=== PATIENT | male | born 2000 | race Asian ===

== ENCOUNTER 2024-04-29 23:37 | Inpatient (IN) ==
[2024-04-30 00:15] LABS: Hematocrit (blood only) 50.4 % (42.0-52.0); Hemoglobin 16.4 g/dl (14.0-18.0); Mean Corpuscular Hemoglobin 27.2 pg (25.0-34.0); Mean Corpuscular Hgb Conc 32.5 g/dL (32.0-36.0); Mean Corpuscular Volume 83.7 fL (80.0-100.0); Mean Platelet Volume 9.7 fL (9.4-12.4); Platelet Count 288 K/uL (130-400); RDW Coefficient of Variation 13.9 % (11.5-14.5); RDW Standard Deviation 41.8 fL (36.4-46.3); Red Blood Count 6.02 M/uL (4.70-6.10); White Blood Count 10.95 K/ul (4.8-10.8)
[2024-04-30 00:33] LABS: Albumin Globulin Ratio 1.4 (0.9-2); BUN Creatinine Ratio 9.8 (10-20); Bilirubin,Total 0.4 mg/dl (0.2-1.0); Calcium 8.4 mg/dl (8.6-10.3); Creatinine Clr Calc Pharmacy 180.5 ml/min; Est GFR (African American) 145.5 ml/min; Est GFR (Non-African American) 125.5 ml/min; Globulin 2.8 gm/dl (2.5-4.0); Total Protein 6.8 gm/dl (6.0-8.3)
--- NOTE | 2024-04-30 00:33 | Emergency Department Note ---
Impression & Plan Chest pain, Elevated troponin, Splenomegaly, SOB (shortness of breath), Cough, Acute sore throat, Elevated LFTs ED Provider Note CHIEF COMPLAINT: Headache, itchy throat, cough HISTORY OF PRESENTING ILLNESS: This 23-year-old male patient presents to the emergency department for evaluation of a cough, sore throat, and headache for the past month. He is now having trouble taking deep breaths without pain in his chest. He is having trouble talking sometimes because of the shortness of breath. Increased shortness of breath with exertion. He is able to swallow, but with a lot of pain in his esophagus and throat. He rates his discomfort as 5/10. Had a fever initially with the illness, but no fevers in the past 2 weeks. The patient took a 7 day course of amoxicillin that he finished 2 days ago. He then started Levofloxacin and Cefotaxime from [place] 2 days ago. He has also been taking Tylenol and throat lozenges. He denies any abdominal pain, nausea, or vomiting. No known ill contacts. REVIEW OF SYSTEMS: See HPI for pertinent positives and pertinent negatives. ALLERGIES: NKDA MEDICATIONS: None PAST MEDICAL HISTORY: Denies pertinent past medical or pertinent past surgical history PHYSICAL EXAM: Vital Signs: Vitals are noted on the nurse's note and reviewed by myself. GENERAL: The patient appears ill, but is non toxic in appearance and in no acute distress. SKIN: No obvious abnormal skin lesions or rashes. Capillary reflex less than 2 seconds. HEAD: Normocephalic, atraumatic. EARS: Bilateral external auditory canals clear without tragus tenderness. Bilateral tympanic membranes pearly viera without erythema or effusion. No mastoid tenderness bilaterally. EYES: Pupils equal round and reactive to light and accommodation. Conjunctivae without injection, sclerae without icterus. Extraocular movements intact. NOSE: Patent, turbinates inflamed with no discharge. No sinus tenderness. MOUTH: Mucous membranes moist. Airway patent, uvula midline. Pharynx is erythematous and edematous without exudate. Pharynx without postnasal drip. No evidence for peritonsillar abscess. NECK: Supple without nuchal rigidity. Bilateral anterior and posterior cervical lymphadenopathy. No [place] angina. No trismus or tripoding. No hot potato voice. HEART: Regular rate and rhythm without murmurs gallops or rubs. LUNGS: Clear to auscultation bilaterally without wheezes, rales or rhonchi. No accessory muscle use or retractions. The patient does have a reflexive cough on exam. ABDOMEN: Positive bowel sounds x 4. Normal tympanic percussion. Soft, nontender to palpation. No obvious masses or organomegaly. Negative Barnett sign. No CVA tenderness. No focal right lower quadrant or left lower quadrant tenderness. NEURO: Patient was alert and oriented. Normal mental status exam. No focal neurological deficits. DIFFERENTIAL DIAGNOSIS: Differential diagnosis includes Influenza, RSV, COVID, viral syndrome, otitis media, otitis externa, pharyngitis, strep throat, pneumonia, meningitis, urinary tract infection, cellulitis, abscess, sepsis, bacteremia, myocarditis, pericarditis, MN, PE, hepatitis, mononucleosis, tickborne illness, Lyme disease, as well as other pathologies. ED COURSE AND MEDICAL DECISION MAKING: MEDICATIONS GIVEN: 1 L normal saline solution bolus. Toradol 10 mg IV. Zofran 4 mg IV. DuoNeb treatment. MONITOR: Continuous cafeteria monitor: Order was placed for continuous cafeteria monitor. Patient was placed on the cafeteria monitor and continuous pulse ox. Patient was noted to be in normal sinus rhythm at an initial rate of 88 bpm per my interpretation. EKG: EKG was interpreted by myself as normal sinus rhythm at [address] bpm with [address] acute [address] or T wave changes. INTERPRETATION OF LABS: I interpreted the labs with full lab results as below in the lab section of this note. Pertinent lab results discussed in the MDM section below. INTERPRETATION OF IMAGING: Imaging studies were interpreted by myself and read by radiology as per the imaging section of this note. CTA of the chest with IV contrast was negative for PE, pneumonia, or abnormalities of the heart. CT scan of the abdomen pelvis with IV contrast showed an enlarged liver with diffuse decreased attenuation which may be due to fatty infiltration as well as splenomegaly. CONSULTATIONS: On-call hospitalist MDM SUMMARY: The patient was seen during a time of extreme volume and extreme acuity. Nursing triage protocols were initiated with IV lock, labs, and/or imaging studies conducted by protocol in the triage area. The patient was initially evaluated in a sub-waiting room and then re-evaluated once they were taken back to an exam room. The patient has had a cough, sore throat, and headache for the past month. He now has chest pain and shortness of breath that is worse with exertion. The patient took a 7-day course of amoxicillin without improvement of his symptoms. He then started Levofloxacin and Cefotaxime 2 days ago. These medications are from his home in [place]. The patient was given 1 L normal saline solution bolus, Toradol 10 mg IV, Zofran 4 mg IV, and a DuoNeb treatment with only mild improvement of his symptoms. White blood cell count slightly elevated at 10.95. Hemoglobin normal at 16.4. Platelet count normal at 288. PT 12.1, but coags otherwise normal. AST 105 and ALT 188, but CMP otherwise normal. High-sensitivity troponin elevated at 28.4 with repeat level of 26.3. Urinalysis with 1+ ketones, but otherwise negative. Anaplasma and Babesia smear negative with DNA PCR still pending. Lyme disease screen negative. Respiratory bio fire negative. Monoscreen negative. EBV and CMV titers still pending. Acute hepatitis panel still pending. Group A strep PCR negative. CTA of the chest with IV contrast was negative for PE, pneumonia, or abnormalities of the heart. CT scan of the abdomen pelvis with IV contrast showed an enlarged liver with diffuse decreased attenuation which may be due to fatty infiltration as well as splenomegaly. The patient continues to have significant symptoms despite treatment with multiple antibiotics given to him in [place] bring [place] the [place]. The patient's LFTs are elevated and he has an enlarged liver and splenomegaly on CT scan with possible fatty liver. Monospot is negative, but EBV and CMV titers are still pending. The patient's high-sensitivity troponin x 2 were also elevated, but downtrending. EKG negative for ischemic changes. There is concern for possible myocarditis or other etiology causing the elevated troponin. Therefore, the patient will require admission for echo and further cardiac evaluation. I spoke with the on-call hospitalist who agreed to admit the patient for further inpatient evaluation and treatment. Please refer to their dictation for further details. The patient's care was transferred in stable condition. DIAGNOSIS: Chest pain Shortness of breath Cough Sore throat Elevated troponin Elevated LFTs with enlarged liver Splenomegaly Past Med/Surg History Problem List (Updated 04/30/24 @ 07:32 by Delma Nagy PA-C) Elevated LFTs (Acute) Acute sore throat (Acute) Cough (Acute) SOB (shortness of breath) (Acute) Splenomegaly (Acute) Elevated troponin (Acute) Chest pain (Acute) Splenomegaly Elevated liver enzymes Viral infection Elevated troponin Medical History No pertinent past medical history Social History Smoking Status: Never smoker Hx Alcohol Use: No Hx Substance Use: No Preferred Language: Swedish [facility] Associate Required: No Beliefs That Will Affect Care: None Current Living Situation: Alone Current Living Situation Comment: Student at [employer] lives in dorm with roommate Other Information That Helps Us Care for You: No Feels Safe at Home: Yes Safety Concerns: Feels Safe At This Time Assistive Devices: None Allergies Allergies Allergy/AdvReac Type Severity Reaction Status Date / Time No Known Allergies Allergy Verified 04/30/24 00:45 Results & Data (ED) Vital Signs Vital Signs - 24 hr 04/29/24 23:40 04/30/24 00:56 04/30/24 00:58 Temperature 36.7 C Temperature Source Temporal Artery Scan Pulse Rate 110 H 93 H Pulse Rate [Apical] Pulse Rate from SpO2 Sensor Pulse Rhythm [Apical] Pulse Strength [Apical] Respiratory Rate 16 Respiratory Effort / Characteristics Non-Labored Spontaneous Respiratory Depth Normal Respiratory Pattern Blood Pressure 129/76 130/71 Blood Pressure [Right Arm] Blood Pressure Mean 93 110 Blood Pressure Mean [Right Arm] Pulse Oximetry 96 Oxygen Delivery Method Room Air Sepsis Recent Fever Within 48 Hours No Sepsis New/Unexplained Change in Mental Status No Sepsis Action Taken by Nursing No Action Required 04/30/24 01:00 04/30/24 01:00 04/30/24 01:00 Temperature Temperature Source Pulse Rate 98 H Pulse Rate [Apical] Pulse Rate from SpO2 Sensor 94 H Pulse Rhythm [Apical] Pulse Strength [Apical] Respiratory Rate 18 Respiratory Effort / Characteristics Respiratory Depth Respiratory Pattern Blood Pressure 122/79 122/79 Blood Pressure [Right Arm] Blood Pressure Mean 94 94 Blood Pressure Mean [Right Arm] Pulse Oximetry 96 Oxygen Delivery Method Sepsis Recent Fever Within 48 Hours Sepsis New/Unexplained Change in Mental Status Sepsis Action Taken by Nursing 04/30/24 01:45 04/30/24 01:46 04/30/24 01:46 Temperature Temperature Source Pulse Rate 108 H Pulse Rate [Apical] Pulse Rate from SpO2 Sensor 106 H Pulse Rhythm [Apical] Pulse Strength [Apical] Respiratory Rate 23 Respiratory Effort / Characteristics Respiratory Depth Respiratory Pattern Blood Pressure 112/63 112/63 Blood Pressure [Right Arm] Blood Pressure Mean 76 76 Blood Pressure Mean [Right Arm] Pulse Oximetry 97 Oxygen Delivery Method Sepsis Recent Fever Within 48 Hours Sepsis New/Unexplained Change in Mental Status Sepsis Action Taken by Nursing 04/30/24 01:46 04/30/24 02:00 04/30/24 02:00 Temperature Temperature Source Pulse Rate Pulse Rate [Apical] Pulse Rate from SpO2 Sensor Pulse Rhythm [Apical] Pulse Strength [Apical] Respiratory Rate Respiratory Effort / Characteristics Respiratory Depth Respiratory Pattern Blood Pressure 112/63 112/65 112/65 Blood Pressure [Right Arm] Blood Pressure Mean 76 83 83 Blood Pressure Mean [Right Arm] Pulse Oximetry Oxygen Delivery Method Sepsis Recent Fever Within 48 Hours Sepsis New/Unexplained Change in Mental Status Sepsis Action Taken by Nursing 04/30/24 02:00 04/30/24 02:00 04/30/24 02:00 Temperature Temperature Source Pulse Rate 98 H Pulse Rate [Apical] Pulse Rate from SpO2 Sensor 97 H Pulse Rhythm [Apical] Pulse Strength [Apical] Respiratory Rate 25 H Respiratory Effort / Characteristics Respiratory Depth Respiratory Pattern Blood Pressure 112/65 112/65 Blood Pressure [Right Arm] Blood Pressure Mean 83 83 Blood Pressure Mean [Right Arm] Pulse Oximetry 93 Oxygen Delivery Method Sepsis Recent Fever Within 48 Hours Sepsis New/Unexplained Change in Mental Status Sepsis Action Taken by Nursing 04/30/24 02:30 04/30/24 02:57 04/30/24 03:00 Temperature 37.1 C Temperature Source Oral Pulse Rate 93 H Pulse Rate [Apical] 99 H Pulse Rate from SpO2 Sensor 94 H Pulse Rhythm [Apical] Regular Pulse Strength [Apical] Normal Respiratory Rate 15 23 Respiratory Effort / Characteristics Non-Labored Respiratory Depth Normal Respiratory Pattern Regular Blood Pressure 114/69 Blood Pressure [Right Arm] 112/65 Blood Pressure Mean 84 Blood Pressure Mean [Right Arm] 80 Pulse Oximetry 93 95 Oxygen Delivery Method Room Air Sepsis Recent Fever Within 48 Hours Sepsis New/Unexplained Change in Mental Status Sepsis Action Taken by Nursing 04/30/24 03:00 04/30/24 03:03 Temperature Temperature Source Pulse Rate 89 Pulse Rate [Apical] Pulse Rate from SpO2 Sensor 90 Pulse Rhythm [Apical] Pulse Strength [Apical] Respiratory Rate 10 L Respiratory Effort / Characteristics Respiratory Depth Respiratory Pattern Blood Pressure 114/69 Blood Pressure [Right Arm] Blood Pressure Mean 84 Blood Pressure Mean [Right Arm] Pulse Oximetry 93 Oxygen Delivery Method Sepsis Recent Fever Within 48 Hours Sepsis New/Unexplained Change in Mental Status Sepsis Action Taken by Nursing Laboratory Data 04/30/24 06:01 04/30/24 06:01 Lab Results 04/29/24 04/30/24 04/30/24 Range/Units 23:52 00:52 01:44 WBC 10.95 H (4.8-10.8) K/ul RBC 6.02 (4.70-6.10) M/uL Hgb 16.4 (14.0-18.0) g/dl Hct 50.4 (42.0-52.0) % MCV 83.7 (80.0-100.0) fL MCH 27.2 (25.0-34.0) pg MCHC 32.5 (32.0-36.0) g/dL RDW Std Deviation 41.8 (36.4-46.3) fL RDW Coeff of Jose 13.9 (11.5-14.5) % Plt Count 288 (130-400) K/uL MPV 9.7 (9.4-12.4) fL Neutrophils % (Manual) 23 % Lymphocytes % (Manual) 37 % Reactive Lymphs % (Man) 38 % Monocytes % (Manual) 2 % Neutrophils # (Manual) 2.52 (1.40-6.50) K/uL Total Absolute Neuts 2.52 (1.4-6.5) K/uL Lymphocytes # (Manual) 4.05 H (1.2-3.4) K/uL Reactive Lymphs # 4.16 K/uL Total Abs Lymphocytes 8.21 H (1.2-3.4) K/uL Monocytes # (Manual) 0.22 (0.11-0.59) K/uL PT 12.1 H (9.0-12.0) Seconds INR 1.1 (0.9-1.1) APTT 29 (21-31) Seconds PTT Ratio 1.1 Sodium 137 (136-145) mmol/L Potassium 4.0 (3.5-5.1) mmol/L Chloride 104 (98-107) mmol/L Carbon Dioxide 26 (21-32) mmol/L Anion Gap 7 (3-11) BUN 8 (6-23) mg/dl Creatinine 0.82 (0.6-1.4) mg/dl Est Cr Clr Drug Dosing 180.5 ml/min Est GFR ( Amer) 145.5 ml/min Est GFR (Non-Af Amer) 125.5 ml/min BUN/Creatinine Ratio 9.8 L (10-20) Glucose 94 (70-99(Fasting)) mg/dl Calcium 8.4 L (8.6-10.3) mg/dl Total Bilirubin 0.4 (0.2-1.0) mg/dl AST 105 H (13-39) U/L ALT 188 H (7-52) U/L Alkaline Phosphatase 62 (34-104) U/L Troponin I High Sens 28.4 H 26.3 H (0-20) pg/ml Total Protein 6.8 (6.0-8.3) gm/dl Albumin 4.0 (3.4-5.0) gm/dl Globulin 2.8 (2.5-4.0) gm/dl Albumin/Globulin Ratio 1.4 (0.9-2) Adenovirus (PCR) Not Detected (NotDetected) Anaplasma Smear See Comment Babesia Smear See Comment B. pertussis DNA (PCR) Not Detected (NotDetected) B.parapertussis DNA PCR Not Detected (NotDetected) Lyme Disease Screen Negative (Negative) C. pneumoniae DNA (PCR) Not Detected (NotDetected) Coronavirus OC43 (PCR) Not Detected (NotDetected) Coronavirus HKU1 (PCR) Not Detected (NotDetected) Coronavirus 229E (PCR) Not Detected (NotDetected) SARS-CoV-2 (PCR) Not Detected (NotDetected) Coronavirus NL63 (PCR) Not Detected (NotDetected) Monoscreen Negative (Negative) Human Metapneumovir PCR Not Detected (NotDetected) Influenza Type A (PCR) Not Detected (NotDetected) Influenza Type B (PCR) Not Detected (NotDetected) M. pneumoniae (PCR) Not Detected (NotDetected) Parainfluenza 1 (PCR) Not Detected (NotDetected) Parainfluenza 2 (PCR) Not Detected (NotDetected) Parainfluenza 3 (PCR) Not Detected (NotDetected) Parainfluenza 4 (PCR) Not Detected (NotDetected) RSV (PCR) Not Detected (NotDetected) Entero/Rhino (PCR) Not Detected (NotDetected) Group A Strep (PCR) NOT DETECTED (NotDetected) Administered Medications Lactated Ringer's (Lr) 1,000 mls @ 125 mls/hr IV .Q8H DANTE Stop: 04/30/24 12:42 Last Admin: 04/30/24 05:13 Dose: 125 mls/hr Documented By: BIGG Discontinued Medications Albuterol (Albut/Ipratrop 3mg/0.5mg Neb 3 Ml Vial) 3 ml NEB NOW STA; Protocol Stop: 04/30/24 00:46 Last Admin: 04/30/24 01:09 Dose: 3 ml Documented By: VARINDER Sodium Chloride (Nss) 1,000 mls @ 999 mls/hr IV .Q1H1M ONE Stop: 04/30/24 01:45 Last Infusion: 04/30/24 02:05 Dose: Infused Documented By: Admin: 04/30/24 01:03 Dose: 999 mls/hr Documented By: VARINDER Ioversol (Optiray 320 125ml) 125 ml IV ONCE ONE Stop: 04/30/24 01:26 Last Admin: 04/30/24 01:27 Dose: 118 ml Documented By: NINO Ketorolac Tromethamine (Ketorolac Tromethamine 15 Mg/Ml Vial) 10 mg IV NOW ONE Stop: 04/30/24 00:47 Last Admin: 04/30/24 01:03 Dose: 10 mg Documented By: VARINDER Ondansetron HCl (Ondansetron Inj 2 Mg/Ml 2 Ml Vial) 4 mg IV NOW STA Stop: 04/30/24 00:47 Last Admin: 04/30/24 01:03 Dose: 4 mg Documented By: VARINDER Imaging Data Radiologist's Impression: Abdomen/Pelvis CT 04/30/24 00:45 Exam(s): CT ABDOMEN + PELVIS With Contrast IV Amt: 118 ML OPTIRAY 320 EXAM: CT Abdomen and Pelvis With Intravenous Contrast CLINICAL HISTORY: Reason for exam: Abdominal pain, fever, elevated LFTs. TECHNIQUE: Axial computed tomography images of the abdomen and pelvis with intravenous contrast. CTDI is 25.45 mGy and DLP is 713.66 mGy-cm. Automated exposure control was utilized for the study. A dose lowering technique was utilized adhering to the principles of ALARA. CONTRAST: Patient received 118 ML OPTIRAY 320 of IV contrast COMPARISON: No relevant prior studies available. FINDINGS: Lung bases: No consolidation. ABDOMEN: Liver: The liver is enlarged and of diffuse decreased attenuation. Gallbladder and bile ducts: No calcified stones. No ductal dilation. Pancreas: No mass. No ductal dilation. Spleen: The spleen is enlarged.. Adrenals: No mass. Kidneys and ureters: No solid mass. No hydronephrosis. Stomach and bowel: There is some air and fluid within the stomach. There is air and stool noted in the colon.. PELVIS: Appendix: Unremarkable CT scan appearance noted the appendix. Bladder: No calculi are noted within the bladder.. Reproductive: Unremarkable as visualized. ABDOMEN and PELVIS: Intraperitoneal space: No free air. No significant fluid collection. Bones/joints: No acute fracture. No dislocation. Soft tissues: Unremarkable. Vasculature: No abdominal aortic aneurysm. Lymph nodes: No enlarged lymph nodes. IMPRESSION: The liver is enlarged and of diffuse decreased attenuation which may be due to fatty infiltration. Splenomegaly. Electronically signed by: Simon Vickers MD 04/30/24 02:24 AM Chest CTA 04/30/24 00:45 Exam(s): CTA CHEST IV Amt: 118 ML OPTIRAY 320 EXAM: CT Angiography Chest With Intravenous Contrast CLINICAL HISTORY: Reason for exam: PE. TECHNIQUE: Axial computed tomographic angiography images of the chest with intravenous contrast. CTDI is 23.85 mGy and DLP is 1294.63 mGy-cm. Automated exposure control was utilized for the study. A dose lowering technique was utilized adhering to the principles of ALARA. MIP reconstructed images were created and reviewed. COMPARISON: No relevant prior studies available. FINDINGS: Pulmonary arteries: No pulmonary embolism is seen. Aorta: No thoracic aortic aneurysm. Lungs: No mass. No consolidation. Pleural space: No significant effusion. No pneumothorax. Heart: The heart is not enlarged.. Bones/joints: No acute fracture. No dislocation. Soft tissues: Unremarkable. Lymph nodes: No enlarged lymph nodes. IMPRESSION: No pulmonary embolism is seen. Electronically signed by: Simon Vickers MD 04/30/24 02:16 AM Discharge Plan Visit Data Chief Complaint: Illness Stated Complaint: HEADACHE,ITCH FROM THROAT TO LUNGS,NO DEEP BREATH ED Provider: Harika Dean ED Midlevel Provider: Delma Nagy Discharge Problem: Chest pain, Elevated troponin, Splenomegaly, SOB (shortness of breath), Cough, Acute sore throat, Elevated LFTs Patient Disposition: Admitted As Inpatient Condition: Good Discharge Instructions Interventions: ED Discharge Assessment Last Done: 04/30/24 04:08 Discharge Problem: Chest pain Qualifiers: Chest pain type: unspecified Qualified Code(s): R07.9 - Chest pain, unspecified Cough Qualifiers: Cough type: acute Qualified Code(s): R05.1 - Acute cough
[2024-04-30 00:39] LABS: Troponin I High Sensitivity 28.4 pg/ml (0-20)
[2024-04-30 00:50] LABS: INR 1.1 (0.9-1.1); Partial Thromboplastin Ratio 1.1; Partial Thromboplastin Time 29 Seconds (21-31); Prothrombin Time 12.1 Seconds (9.0-12.0)
[2024-04-30] MEDS: SODIUM CHLORIDE 0.9% 1,000 ML IV ONE (01:03)
[2024-04-30] MEDS: KETOROLAC TROMETHAMINE 15 MG/ML VIAL IV ONE ×2 (01:03→15:20)
[2024-04-30] MEDS: ONDANSETRON INJ 2 MG/ML 2 ML VIAL IV STA (01:03)
[2024-04-30 01:08] LABS: Adenovirus PCR Not Detected (NotDetected); Bordetella parapertussis PCR Not Detected (NotDetected); Bordetella pertussis PCR Not Detected (NotDetected); Chlamydia pneumoniae PCR Not Detected (NotDetected); Coronavirus 229E PCR Not Detected (NotDetected); Coronavirus CoV-2 (COVID19)PCR Not Detected (NotDetected); Coronavirus HKU1 PCR Not Detected (NotDetected); Coronavirus NL63 PCR Not Detected (NotDetected); Coronavirus OC43PCR Not Detected (NotDetected); Human Metapneumovirus PCR Not Detected (NotDetected); Influenza A PCR Not Detected (NotDetected); Influenza B PCR Not Detected (NotDetected); Mycoplasma pneumoniae PCR Not Detected (NotDetected); Parainfluenza Virus 1 PCR Not Detected (NotDetected); Parainfluenza Virus 2 PCR Not Detected (NotDetected); Parainfluenza Virus 3 PCR Not Detected (NotDetected); Parainfluenza Virus 4 PCR Not Detected (NotDetected); Respiratory Syncytial VirusPCR Not Detected (NotDetected); Rhinovirus/Enterovirus PCR Not Detected (NotDetected)
[2024-04-30] MEDS: ALBUT/IPRATROP 3MG/0.5MG NEB 3 ML VIAL NEB STA (01:09)
[2024-04-30] MEDS: OPTIRAY 320 125ml IV ONE (01:27)
[2024-04-30 01:33] LABS: ALC (manual) 8.21 K/uL (1.2-3.4); ANC (manual) 2.52 K/uL (1.4-6.5); Lymphocytes # (manual) 4.05 K/uL (1.2-3.4); Lymphocytes % (manual) 37 %; Monocytes # (manual) 0.22 K/uL (0.11-0.59); Monocytes % (manual) 2 %; Neutrophils # (manual) 2.52 K/uL (1.40-6.50); Neutrophils % (manual) 23 %; Reactive Lymphocytes # (manual) 4.16 K/uL; Reactive Lymphocytes % (manual) 38 %
--- NOTE | 2024-04-30 02:17 | CT Scan Report ---
Exam(s): CTA CHEST IV Amt: 118 ML OPTIRAY 320 EXAM: CT Angiography Chest With Intravenous Contrast CLINICAL HISTORY: Reason for exam: PE. TECHNIQUE: Axial computed tomographic angiography images of the chest with intravenous contrast. CTDI is 23.85 mGy and DLP is 1294.63 mGy-cm. Automated exposure control was utilized for the study. A dose lowering technique was utilized adhering to the principles of ALARA. MIP reconstructed images were created and reviewed. COMPARISON: No relevant prior studies available. FINDINGS: Pulmonary arteries: No pulmonary embolism is seen. Aorta: No thoracic aortic aneurysm. Lungs: No mass. No consolidation. Pleural space: No significant effusion. No pneumothorax. Heart: The heart is not enlarged.. Bones/joints: No acute fracture. No dislocation. Soft tissues: Unremarkable. Lymph nodes: No enlarged lymph nodes. IMPRESSION: No pulmonary embolism is seen. Electronically signed by: Simon Vickers MD 04/30/24 02:16 AM
--- NOTE | 2024-04-30 02:24 | CT Scan Report ---
Exam(s): CT ABDOMEN + PELVIS With Contrast IV Amt: 118 ML OPTIRAY 320 EXAM: CT Abdomen and Pelvis With Intravenous Contrast CLINICAL HISTORY: Reason for exam: Abdominal pain, fever, elevated LFTs. TECHNIQUE: Axial computed tomography images of the abdomen and pelvis with intravenous contrast. CTDI is 25.45 mGy and DLP is 713.66 mGy-cm. Automated exposure control was utilized for the study. A dose lowering technique was utilized adhering to the principles of ALARA. CONTRAST: Patient received 118 ML OPTIRAY 320 of IV contrast COMPARISON: No relevant prior studies available. FINDINGS: Lung bases: No consolidation. ABDOMEN: Liver: The liver is enlarged and of diffuse decreased attenuation. Gallbladder and bile ducts: No calcified stones. No ductal dilation. Pancreas: No mass. No ductal dilation. Spleen: The spleen is enlarged.. Adrenals: No mass. Kidneys and ureters: No solid mass. No hydronephrosis. Stomach and bowel: There is some air and fluid within the stomach. There is air and stool noted in the colon.. PELVIS: Appendix: Unremarkable CT scan appearance noted the appendix. Bladder: No calculi are noted within the bladder.. Reproductive: Unremarkable as visualized. ABDOMEN and PELVIS: Intraperitoneal space: No free air. No significant fluid collection. Bones/joints: No acute fracture. No dislocation. Soft tissues: Unremarkable. Vasculature: No abdominal aortic aneurysm. Lymph nodes: No enlarged lymph nodes. IMPRESSION: The liver is enlarged and of diffuse decreased attenuation which may be due to fatty infiltration. Splenomegaly. Electronically signed by: Simon Vickers MD 04/30/24 02:24 AM
[2024-04-30 02:41] LABS: Appearance Urine Clear (Clear); Bilirubin Urine Negative (Negative); Blood Urine Negative (Negative); Color Urine Yellow; Glucose Urine UA Negative (Negative); Ketones Urine 1+ (Negative); Leukocyte Esterase Urine Negative (Negative); Nitrite Urine Negative (Negative); Protein Urine Negative (Negative); Specific Gravity Urine > 1.045 (1.000-1.030); Urobilinogen Urine Negative (Negative); pH Urine 6.5 (4.5-7.5)
--- NOTE | 2024-04-30 03:39 | History & Physical Report ---
Date of Service April 30, 2024 Assessment & Plan (1) Viral infection: Plan: -Patient with cough, sore throat, headache, shortness of breath, chest tightness for the past month. Has tried amoxicillin for 7 days. Has also tried levofloxacin and cefotaxime for 2 days prior to arrival. -Chest CTA negative, no pulmonary emboli. -Slight leukocytosis of 10.95, increasing lymphocytes. -CMP showing elevated liver enzymes. -UA with 1+ ketones, otherwise benign. -Respiratory BioFire negative, Monospot negative, Lyme negative. Anaplasmosis and Babesia smear negative. -Hepatitis, EBV, CMV pending. -EKG showed sinus rhythm. -DuoNebs as needed, will give 1 L of LR at time of admission. -Patient is on room air satting well. -Patient was likely has a viral infection, will hold off on antibiotic treatments at this time. -Patient denies any drug or whippets use, will order vitamin B12 level in the a.m. (2) Elevated troponin: Plan: -Troponin of 28.4 in the ED, 2-hour repeat shows a decrease at 26.3. -Given patient's chest tightness and slightly elevated troponin will get echo in the a.m. (3) Elevated liver enzymes: Plan: -Elevated liver enzymes in the ED. -CT abdomen pelvis showed enlarged liver with possibility of fatty liver. -Most likely secondary to viral infection as above. -CMP in the AM. (4) Splenomegaly: Plan: -Splenomegaly noted on CT abdomen pelvis. -Most likely secondary to viral illness. -Should be instructed to refrain from contact sports at time of discharge. -Should establish with PCP in the area for follow-up. Plan Fluids: LR at 125, 1 L Nutrition: Regular Code status: Full code DVT ppx: None, anticipate short admission Dispo: MedSurg with telemetry History of Present Illness Chief Complaint: Elevated troponin, chest pain, SOB Primary Care Provider: [facility] Patient is a 23-year-old male with no significant past medical history who presents to the hospital with complaints of cough, headache, sore throat, chest tightness for the last month. 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 He moved from [place] to here March 31. Proximately couple days after arrival he started to have the symptoms of a productive cough which is yellow in nature. He has also been having a sore throat and headache. Also having shortness of breath especially with exertion. States that he has itchiness in his throat from the cough. States that he has gotten some medications from [place] that he took. He took a 7-day course of amoxicillin. He then started a course of levofloxacin and cefotaxime approximately 2 days ago. Has been also using throat lozenges and Tylenol. Denies any abdominal pain, nausea, or vomiting. States that he did not travel anywhere prior to coming from [place]. Patient also denies any alcohol or drug use. He also denies any whippets/nitrous oxide use. Allergies Allergy/AdvReac Type Severity Reaction Status Date / Time No Known Allergies Allergy Verified 04/30/24 00:45 Home Medications Medication Instructions Recorded Confirmed Type albuterol sulfate 90 mcg/actuation 2 inh inhalation Q6H PRN shortness 04/30/24 Rx aerosol inhaler of breath or wheezing #6.7 grams benzonatate 200 mg capsule 200 mg PO TID PRN cough #15 caps 04/30/24 Rx Past Med/Surg History Problem List (Updated 04/30/24 @ 07:32 by Delma Nagy PA-C) Elevated LFTs (Acute) Acute sore throat (Acute) Cough (Acute) SOB (shortness of breath) (Acute) Splenomegaly (Acute) Elevated troponin (Acute) Chest pain (Acute) Splenomegaly Elevated liver enzymes Viral infection Elevated troponin Medical History No pertinent past medical history Social History Smoking Status: Never smoker Hx Alcohol Use: No Hx Substance Use: No Preferred Language: Portuguese Fusion Operator Required: No Beliefs That Will Affect Care: None Current Living Situation: Alone Current Living Situation Comment: Student at [employer] lives in dorm with roommate Feels Safe at Home: Yes Assistive Devices: None Review of Systems Review of Systems: All systems reviewed & are unremarkable except as noted in Subjective Physical Exam Physical Exam: Constitutional: well-appearing, no acute distress HEENT: NCAT, no conjunctival injection CV: regular rhythm, no murmur appreciated, extremities well-perfused, no LE edema Resp: CTABL, no wheezes/rales/rhonchi appreciated, no increased work of br eathing GI: soft, nondistended, right upper quadrant tenderness on deep palpitation, BS normoactive MSK: no gross deformities appreciated Skin: warm, dry, no rash appreciated Neuro: alert, oriented, no focal neurologic deficit appreciated Results & Data Results & Data Vital Signs (Past 12 Hours) Vital Signs Temp Pulse Pulse Resp BP BP Pulse Ox 04/30/24 03:03 89 10 L 93 04/30/24 03:00 114/69 04/30/24 03:00 114/69 04/30/24 02:57 93 H 23 95 04/30/24 02:30 37.1 C 99 H 15 112/65 93 04/30/24 02:00 98 H 25 H 93 04/30/24 02:00 112/65 04/30/24 02:00 112/65 04/30/24 02:00 112/65 04/30/24 02:00 112/65 04/30/24 01:46 112/63 04/30/24 01:46 112/63 04/30/24 01:46 112/63 04/30/24 01:45 108 H 23 97 04/30/24 01:00 98 H 18 96 04/30/24 01:00 122/79 04/30/24 01:00 122/79 04/30/24 00:58 93 H 04/30/24 00:56 130/71 04/29/24 23:40 36.7 C 110 H 16 129/76 96 O2 Del Method 04/30/24 03:03 04/30/24 03:00 04/30/24 03:00 04/30/24 02:57 04/30/24 02:30 Room Air 04/30/24 02:00 04/30/24 02:00 04/30/24 02:00 04/30/24 02:00 04/30/24 02:00 04/30/24 01:46 04/30/24 01:46 04/30/24 01:46 04/30/24 01:45 04/30/24 01:00 04/30/24 01:00 04/30/24 01:00 04/30/24 00:58 04/30/24 00:56 04/29/24 23:40 Room Air Supervising Physician Co-Signing Physician Notes Attending addendum: I have physically seen this patient, have supervised the medical residents activities, and agree with the H&P unless as otherwise noted. Assessment and Plan: Viral syndrome- Patient with symptoms over the past month of cough, sore throat, headache, dyspnea on exertion He had been on a 7-day course of amoxicillin, and then more recently 2 days of levofloxacin and cefotaxime He had traveled recently to [place] DuoNebs every 2 hours as needed Pulse ox 95% on room air No antibiotics needed Status post 1 L normal saline in ED, DuoNeb, Toradol 10 mg IV and Zofran 4 mg IV Placed on LR at 125 mL/h for 1 L Elevated troponin- Initial troponin 28.4 with follow-up 26.3 The patient will be admitted to telemetry for serial cardiac enzymes, serial EKG's, cardiac rhythm monitoring and a 2-D echocardiogram with Dopplers. Assess for pericarditis associate with viral process Transaminitis/fatty liver/splenomegaly- AST 105, ALT 188, with no baseline comparison Appropriate viral studies have been ordered by the ED BioFire negative [place] negative Hepatitis A pending Hepatitis B and C pending Lyme testing negative, babesiosis anaplasmosis smear is negative Resident Activity Tracking Resident Involvement: Resident Care Provided Care Provided: Adult Hospital Medicine
[2024-04-30] MEDS ORDERED: ONDANSETRON INJ 2 MG/ML 2 ML VIAL IV PRN (04:43)
[2024-04-30] MEDS: LACTATED RINGER'S 1,000 ML IV SCH (05:13)
[2024-04-30 06:20] LABS: Hematocrit (blood only) 43.6 % (42.0-52.0); Hemoglobin 14.2 g/dl (14.0-18.0); Mean Corpuscular Hemoglobin 27.2 pg (25.0-34.0); Mean Corpuscular Hgb Conc 32.6 g/dL (32.0-36.0); Mean Corpuscular Volume 83.5 fL (80.0-100.0); Mean Platelet Volume 9.8 fL (9.4-12.4); Platelet Count 263 K/uL (130-400); RDW Coefficient of Variation 13.9 % (11.5-14.5); RDW Standard Deviation 42.1 fL (36.4-46.3); Red Blood Count 5.22 M/uL (4.70-6.10); White Blood Count 9.51 K/ul (4.8-10.8)
[2024-04-30 06:38] LABS: Alanine Aminotransferase 148 U/L (7-52); Albumin Globulin Ratio 1.4 (0.9-2); Albumin Level 3.4 gm/dl (3.4-5.0); Alkaline Phosphatase 53 U/L (34-104); Anion Gap 6 (3-11); Aspartate Aminotransferase 74 U/L (13-39); BUN Creatinine Ratio 8.1 (10-20); Bilirubin,Total 0.4 mg/dl (0.2-1.0); Blood Urea Nitrogen 6 mg/dl (6-23); Calcium 7.6 mg/dl (8.6-10.3); Carbon Dioxide 25 mmol/L (21-32); Chloride 108 mmol/L (98-107); Creatinine Clr Calc Pharmacy 169.6 ml/min; Est GFR (African American) > 150.0 ml/min; Est GFR (Non-African American) 130.9 ml/min; Globulin 2.5 gm/dl (2.5-4.0); Glucose 109 mg/dl (70-99(Fasting)); Potassium 3.7 mmol/L (3.5-5.1); Sodium 139 mmol/L (136-145); Total Protein 5.9 gm/dl (6.0-8.3)
[2024-04-30 06:44] LABS: Troponin I High Sensitivity 20.9 pg/ml (0-20)
[2024-04-30 06:57] LABS: INR 1.2 (0.9-1.1); Prothrombin Time 12.6 Seconds (9.0-12.0)
[2024-04-30 07:26] LABS: ALC (manual) 5.52 K/uL (1.2-3.4); ANC (manual) 3.52 K/uL (1.4-6.5); Basophils % (manual) 1 %; Eosinophils % (manual) 1 %; Lymphocytes % (manual) 21 %; Metamyelocytes % (manual) 1 %; Monocytes # (manual) 0.19 K/uL (0.11-0.59); Monocytes % (manual) 2 %; Neutrophils # (manual) 3.52 K/uL (1.40-6.50); Neutrophils % (manual) 37 %; RBC Morphology Unremarkable; Reactive Lymphocytes # (manual) 3.52 K/uL; Reactive Lymphocytes % (manual) 37 %
--- NOTE | 2024-04-30 08:10 | Hospitalist Progress Note ---
Date of Service April 30, 2024 Assessment & Plan (1) Viral infection: Plan: -Patient with cough, sore throat, headache, shortness of breath, chest tightness for the past month. Has tried amoxicillin for 7 days. Has also tried levofloxacin and cefotaxime for 2 days prior to arrival. -Chest CTA negative, no pulmonary emboli. -Slight leukocytosis of 10.95, increasing lymphocytes. -CMP showing elevated liver enzymes. -UA with 1+ ketones, otherwise benign. -Respiratory BioFire negative, Monospot negative, Lyme negative. Anaplasmosis and Babesia smear negative. -Hepatitis, EBV, CMV pending. -EKG showed sinus rhythm. -DuoNebs as needed, will give 1 L of LR at time of admission. -Patient is on room air satting well. -Patient was likely has a viral infection, will hold off on antibiotic treatments at this time. -Patient denies any drug or whippets use, will order vitamin B12 level in the a.m. (2) Elevated troponin: Plan: -Troponin of 28.4 in the ED, 2-hour repeat shows a decrease at 26.3. -Given patient's chest tightness and slightly elevated troponin will get echo in the a.m. (3) Elevated liver enzymes: Plan: -Elevated liver enzymes in the ED. -CT abdomen pelvis showed enlarged liver with possibility of fatty liver. -Most likely secondary to viral infection as above. -CMP in the AM. (4) Splenomegaly: Plan: -Splenomegaly noted on CT abdomen pelvis. -Most likely secondary to viral illness. -Should be instructed to refrain from contact sports at time of discharge. -Should establish with PCP in the area for follow-up. Plan Fluids: LR at 125, 1 L Nutrition: Regular Code status: Full code DVT ppx: None, anticipate short admission [facility] Admission and Anticipated Discharge Date Admission Date: April 30, 2024 Results & Data Results & Data Vital Signs (Past 12 Hours) Vital Signs Temp Pulse Pulse Resp BP BP Pulse Ox 04/30/24 07:54 04/30/24 06:58 36.9 C 79 16 118/59 L 94 04/30/24 05:26 04/30/24 04:52 36.9 C 86 16 108/69 94 04/30/24 04:43 83 04/30/24 03:03 89 10 L 93 04/30/24 03:00 114/69 04/30/24 03:00 114/69 04/30/24 02:57 93 H 23 95 04/30/24 02:30 37.1 C 99 H 15 112/65 93 04/30/24 02:00 98 H 25 H 93 04/30/24 02:00 112/65 04/30/24 02:00 112/65 04/30/24 02:00 112/65 04/30/24 02:00 112/65 04/30/24 01:46 112/63 04/30/24 01:46 112/63 04/30/24 01:46 112/63 04/30/24 01:45 108 H 23 97 04/30/24 01:00 98 H 18 96 04/30/24 01:00 122/79 04/30/24 01:00 122/79 04/30/24 00:58 93 H 04/30/24 00:56 130/71 04/29/24 23:40 36.7 C 110 H 16 129/76 96 O2 Del Method 04/30/24 07:54 Room Air 04/30/24 06:58 Room Air 04/30/24 05:26 Room Air 04/30/24 04:52 Room Air 04/30/24 04:43 04/30/24 03:03 04/30/24 03:00 04/30/24 03:00 04/30/24 02:57 04/30/24 02:30 Room Air 04/30/24 02:00 04/30/24 02:00 04/30/24 02:00 04/30/24 02:00 04/30/24 02:00 04/30/24 01:46 04/30/24 01:46 04/30/24 01:46 04/30/24 01:45 04/30/24 01:00 04/30/24 01:00 04/30/24 01:00 04/30/24 00:58 04/30/24 00:56 04/29/24 23:40 Room Air
[2024-04-30 09:51] LABS: Hep B Surface Ag with confirm Negative (Negative)
[2024-04-30 09:56] LABS: Hep C Ab Rflx HepCQuant RNA Negative (Negative)
--- NOTE | 2024-04-30 12:38 | XCELERA ---
[id number] [id number]
[2024-04-30] MEDS: ALBUT/IPRATROP 3MG/0.5MG NEB 3 ML VIAL NEB PRN (12:49)
--- NOTE | 2024-04-30 13:28 | Electrocardiogram Report ---
Test Reason : Blood Pressure : */* mmHG Vent. Rate : 95 BPM Atrial Rate : 95 BPM P-R Int : 164 ms QRS Dur : 82 ms QT Int : 342 ms P-R-T Axes : 39 64 24 degrees QTcB Int : 429 ms Normal sinus rhythm Normal ECG No previous ECGs available Confirmed by Wiliam Mancia ([id number]) on 04/30/2024 1:27:45 PM Referred By: Confirmed By: Wiliam Mancia
[2024-04-30] MEDS: BENZONATATE 100 MG CAPSULE PO ONE (15:20)
--- NOTE | 2024-04-30 16:49 | Discharge Summary ---
Date of Service April 30, 2024 Admission HPI Per Admitting Provider Patient is a 23-year-old male with no significant past medical history who presents to the hospital with complaints of cough, headache, sore throat, chest tightness for the last month. Patient is a [employer] student from [place]. He moved from [place] to here March 31. Proximately couple days after arrival he started to have the symptoms of a productive cough which is yellow in nature. He has also been having a sore throat and headache. Also having shortness of breath especially with exertion. States that he has itchiness in his throat from the cough. States that he has gotten some medications from [place] that he took. He took a 7-day course of amoxicillin. He then started a course of levofloxacin and cefotaxime approximately 2 days ago. Has been also using throat lozenges and Tylenol. Denies any abdominal pain, nausea, or vomiting. States that he did not travel anywhere prior to coming from [place]. Patient also denies any alcohol or drug use. He also denies any whippets/nitrous oxide use. Admission Exam Per Admitting Provider Constitutional: well-appearing, no acute distress HEENT: NCAT, no conjunctival injection CV: regular rhythm, no murmur appreciated, extremities well-perfused, no LE edema Resp: CTABL, no wheezes/rales/rhonchi appreciated, no increased work of breathing GI: soft, nondistended, right upper quadrant tenderness on deep palpitation, BS normoactive MSK: no gross deformities appreciated Skin: warm, dry, no rash appreciated Neuro: alert, oriented, no focal neurologic deficit appreciated Principal Diagnosis mononucleosis-like viral illness Discharge Exam constitutional: A&Ox4, not in acute distress HEENT: anicteric sclerae, EOM intact cardio: RRR, no murmurs pulmonary: clear to auscultation b/l GI: normoactive bowel sounds; soft, nondistended, no guarding or rebound; mild tenderness to palpation of LUQ>RUQ skin: non-jaundiced, no rashes Discharge Data Allergies Allergy/AdvReac Type Severity Reaction Status Date / Time No Known Allergies Allergy Verified 04/30/24 00:45 Consultations 04/30/24 03:31 ED Decision to Admit Stat Ordered Studies 04/30/24 00:45 CT abd pelvis IV con only Stat CT angio chest PE protocol Stat Hospital Course (1) Viral infection: -Patient with cough, sore throat, headache, shortness of breath, chest tightness for the past month. Has tried amoxicillin for 7 days. Has also tried levofloxacin and cefotaxime for 2 days prior to arrival. -Chest CTA negative, no pulmonary emboli. - CT abdomen/pelvis shows hepatosplenomegaly -Slight leukocytosis of 10.95, increasing lymphocytes. -CMP showing elevated liver enzymes. -UA with 1+ ketones, otherwise benign. -Respiratory BioFire negative, Monospot negative, Lyme negative. Anaplasmosis and Babesia smear negative. -Hepatitis, EBV, CMV pending. -EKG showed sinus rhythm. -DuoNebs as needed, will give 1 L of LR at time of admission. -Patient is on room air satting well. -Patient was likely has a viral infection, will hold off on antibiotic treatments at this time. -Patient denies any drug or whippets use, will order vitamin B12 level in the a.m. (2) Elevated troponin: -Troponin of 28.4 in the ED, 2-hour repeat shows a decrease at 26.3. -Given patient's chest tightness and slightly elevated troponin will get echo in the a.m. (3) Elevated liver enzymes: -Elevated liver enzymes in the ED. -CT abdomen pelvis showed enlarged liver with possibility of fatty liver. -Most likely secondary to viral infection as above. (4) Splenomegaly: -Splenomegaly noted on CT abdomen pelvis. -Most likely secondary to viral illness. -Should be instructed to refrain from contact sports at time of discharge. -Should establish with PCP in the area for follow-up. Total Time Total Time Spent Total Time Spent (In Minutes): <30 Discharge Plan Discharge Items Patient Disposition: Home - Self-Care Reason For Visit: ELEVATED TROPONIN, CHEST PAIN, SOB Discharge Diagnosis: shortness of breath, viral illness Condition on Discharge: Good Activity: Per Instructions section Non-emergency contact: Primary Care Provider Call non-emergency contact if: you have any medication questions and your symptoms worsen Follow-up/Referrals: [place] [Primary Care Provider] - (Please schedule a hospital discharge follow up appointment within one week) Diet: Regular Addtl Attending Provider Instructions: You were admitted to the hospital for shortness of breath/viral illness. A discharge summary will be sent to your primary care physician to ensure continuity of care. There are several viral tests that are still pending at the time of your discharge, however there are no changes that would be made for the care of your illness. As your spleen was slightly enlarged and we suspect your viral illness could be mono (despite the initial negative monospot), you should avoid contact sports for a minimum of one month or until cleared by your PCP. We encourage you to rest and get adequate sleep, drink plenty of water/other fluids, and you can take over the counter medications for pain, congestion, cough. If your symptoms worsen significantly or you have immediate concerns, you can always return to the emergency department to be reassessed. Follow-up appointments: Make a follow-up appointment with your PCP within the next week. It is very important that you follow up with them shortly after discharge from the hospital. Medications: Your medication list has been reviewed and reconciled upon discharge to ensure accuracy and continuity of care. -I have sent a prescription for an albuterol inhaler, you can use 2 puffs of the inhaler as needed every 6 hours for shortness of breath and/or wheezing. -A prescription was also sent for Tessalon Perles 200mg, take 1 capsule as needed three times per day for cough. I have sent your prescriptions to [facility] ([address] [place] [address], [place], [place]). , they are open until 7pm. You may need to bring your health insurance card with you to greens picker your prescriptions. CALL 911 OR GO TO THE EMERGENCY DEPARTMENT if you experience any of the following: Sudden, severe abdominal pain or nausea/vomiting Severe chest pain, or chest pain that radiates (moves) to your jaw or arm Sudden, severe shortness of breath or difficulty breathing Thank you for allowing us to participate in your care. Pending Studies at Discharge: Yes (hepatitis panels, tick born diseases, CMV, EBV) Stand-Alone Forms: My [facility] [employer], Smoking Cessation Medications and DC Order Prescriptions: New benzonatate 200 mg capsule 200 mg PO TID PRN (Reason: cough) Qty: 15 0RF albuterol sulfate 90 mcg/actuation HFA aerosol inhaler 2 inh inhalation Q6H PRN (Reason: shortness of breath or wheezing) Qty: 6.7 1RF Discharge Orders: Discharge Order (Routine); Ordered 04/30/24 Ordered By: Barbara White Admission Data Admit Date/Time: 04/30/24 03:46 Attending Provider: Fernando Stoll Admit Provider: Tarik Paulino Primary Care Provider: [facility] Other Providers: Jimbo Prescott Other Interventions: Discharge Summary Assessment (RN) Last Done: 04/30/24 16:20 Supervising Physician Co-Signing Physician Notes I personally examined the patient and verified all donaldson points of history and exam, discussed case, and agree with decision making with Dr Bejarano Feels about the same. After extensive discussions with myself as well as multiple resident physicians, he does conclude that he would be able to take care of himself at home and feels up to leaving the hospital. Feels like he will be able to eat and drink well enough to do okay at home. Vitals noted, in general he is awake and alert fatigued but no distress. HEENT normocephalic atraumatic mucous membranes moist. Breathing unlabored no accessory muscle use good effort. Skin without rashes pallor or icterus. Neuro without focal deficits. Viral illnesscertainly seems quite consistent with a mono like illness, if not true mononucleosis (obviously Monospot negative but can be false negative)with transaminitis/hepatosplenomegaly, overall viral illness, duration of illness, lack of response to antibiotics suggesting this is definitely not bacterial (and CTs and lab work not supporting a bacterial etiology)discussed with patient as best as possible, discussed care being primarily supportive. Discussed anticipated slow recovery back to baseline. Discussed weekly labs to trend liver enzymes back to normal. Otherwise as above. Safe/stable for home Resident Activity Tracking Resident Involvement: Resident Care Provided Care Provided: Adult Hospital Medicine
--- NOTE | 2024-04-30 17:43 | Billing Data ---
Date of Service April 30, 2024 Coding Level of Care Code 18215 IN/OBS DISCH 30 MIN/LESS
--- NOTE | 2024-04-30 19:30 | Billing Data ---
Date of Service April 30, 2024 Coding Level of Care Code 29656 INT INP/OBS CARE
[2024-05-01 10:57] LABS: Hepatitis A Antibody IgM NON-REACTIVE (NON-REACTIVE); Hepatitis B Core Antibody IgM NON-REACTIVE (NON-REACTIVE)
--- NOTE | 2024-05-01 12:03 | Electrocardiogram Report ---
Test Reason : Blood Pressure : */* mmHG Vent. Rate : 91 BPM Atrial Rate : 91 BPM P-R Int : 176 ms QRS Dur : 84 ms QT Int : 346 ms P-R-T Axes : 33 64 7 degrees QTcB Int : 425 ms Normal sinus rhythm Normal ECG When compared with ECG of 29-Apr-2024 23:50, No significant change was found Confirmed by Wilaim Mancia ([id number]) on 05/01/2024 12:03:06 PM Referred By: REFERRED SELF Confirmed By: Wiliam Mancia
[2024-05-01 13:12] LABS: EBV Nuclear Ag Antibody >600.00 U/mL
[2024-05-02 15:53] LABS: CMV IgG Antibody 8.3 U/mL
== END 2024-04-30 18:02 | disposition home or self-care (01) | DRG 866 ==
LOC: ED 23:37 → SUATTDRO 04-30 03:46 → 2E 04-30 03:46